=== PATIENT | male | born 1980 | race Caucasian/White ===

== ENCOUNTER 2019-10-04 21:05 | Inpatient (IN) | payer BC ==
[~2019-10-04] VITALS: Ht 185.4 cm; Wt 76.7 kg
--- NOTE | 2019-10-04 21:10 | NUR ---
BIBS FOR C/O RLQ ABD PAIN SINCE 999. DENIED DYSURIA OR HEMATURIA -N/V/D, pt awake, alert, -sob. -cp. vss. +rlq pain, 09/27, pt refuses pain meds at this time. placed on monitor, pending md gusman
[2019-10-04 21:43] LABS: BASOPHILS % (AUTO) 0.6 % (0.0-2.0); EOSINOPHILS % (AUTO) 0.9 % (0.0-6.0); HEMATOCRIT 44 % (39-51); HEMOGLOBIN 15.2 g/dL (13.5-17.5); LYMPHOCYTES # (AUTO) 1.6 /CMM (0.8-4.8); LYMPHOCYTES % (AUTO) 21.4 % (20.0-44.0); MEAN CORPUSCULAR HGB CONC 34 g/dl (31.0-36.0); MEAN CORPUSCULAR VOLUME 91 fL (80-96); MONOCYTES # (AUTO) 0.6 /CMM (0.1-1.30); MONOCYTES % (AUTO) 8.7 % (2.0-12.0); NEUTROPHILS # (AUTO) 5.1 /CMM (1.8-8.9); NEUTROPHILS % (AUTO) 68.4 % (43.0-81.0); PLATELET COUNT (AUTO) 225 /CMM (150-450); RED BLOOD CELL COUNT(AUTO) 4.85 MIL/uL (4.5-6.0); WHITE BLOOD COUNT (AUTO) 7.5 K/uL (4.3-11.0)
[2019-10-04 21:51] LABS: CALCIUM, SERUM 9.8 mg/dL (8.5-10.1); CREATININE 1.1 mg/dL (0.6-1.3); POTASSIUM 3.9 mmol/L (3.5-5.1)
[2019-10-04 21:57] LABS: ALBUMIN 4.3 g/dL (3.4-5.0); BILIRUBIN,DIRECT 0.1 mg/dL (0.0-0.2); BILIRUBIN,TOTAL 0.8 mg/dL (0.2-1.0); TOTAL PROTEIN, SERUM 7.5 g/dL (6.4-8.2)
[2019-10-04 22:13] LABS: APPEARANCE,URINE Slightly Cloudy (CLEAR); BILIRUBIN,URINE Negative (NEGATIVE); BLOOD, URINE Negative Ery/uL (NEGATIVE); COLOR,URINE Yellow (YELLOW); KETONES,URINE Negative (NEGATIVE); LEUKOCYTE ESTERASE ,URINE Negative (NEGATIVE); NITRITE, URINE Negative (NEGATIVE); PH,URINE 8.5 (5.0-8.0); PROTEIN,URINE Negative (NEGATIVE); UGLUCOSE Negative (NEGATIVE)
[2019-10-04] MEDS ORDERED: PIPERACILLIN /TAZOBACTAM 3.375 G in IV D5W 50 ML IV ONE (23:00)
--- NOTE | 2019-10-04 23:00 | NUR ---
CALLED [facility], PAGED TIM JACKMAN NP
--- NOTE | 2019-10-04 23:03 | NUR ---
CALLED NURSING SUP FOR MEDS[facility]G BED
--- NOTE | 2019-10-04 23:06 | NUR ---
ER RD [facility] TALKING TO TIM JACKMAN [facility] REGARDING PT ADMISSION.
[2019-10-04] MEDS ORDERED: PIPERACILLIN /TAZOBACTAM 3.375 G VIAL IV ONE (23:17)
[2019-10-04 23:30] VITALS: BP 116/72
--- NOTE | 2019-10-04 23:42 | NUR ---
report given to queenie stone for danny, pt transported to 3rd floor
[2019-10-05] VITALS (11 sets, daily range): BP systolic 109–136; BP diastolic 62–73
[2019-10-05] MEDS ORDERED: MORPHINE SULFATE INJ 2 MG/ML DISP.SYRIN IV PRN
[2019-10-05] MEDS ORDERED: ONDANSETRON HCL/PF 4 MG/2 ML VIAL IVP PRN
[2019-10-05] MEDS ORDERED: ACETAMINOPHEN 325 MG TABLET PO PRN
[2019-10-05] MEDS ORDERED: MAGNESIUM HYDROXIDE 30 ML UDC PO PRN
[2019-10-05] MEDS ORDERED: Z GUARD REMEDY 2 OZ OINT TP PRN
--- NOTE | 2019-10-05 | NUR ---
[facility] NOTES Received patient from ER via wheelchair accompanied by 1 ER staff. Admitted to [facility] 327-1 due to acute appendicitis under the service of Dr. Horvath. Assisted to bed comfortably. Noted ambulatory with steady gait. A/O x4, independent, on RA, no SOB/respiratory distress noted. Admission routine done. Patient denies any skin issues at this time. With peripheral IV line G#20 with Zosyn 3.375gm ongoing. Admission orders noted and carried out. Kept patient on bed clean, dry and comfortable. Instructed to be on NPO for possible procedures in the morning, patient verbalized understanding. Call light within easy reach. Will continue to monitor accordingly.
[2019-10-05] MEDS: IV NS 0.9% 1,000 ML IV PRN ×2 (00:14→16:02)
[2019-10-05] MEDS ORDERED: PIPERACILLIN /TAZOBACTAM 3.375 G VIAL IV ONE (03:16)
[2019-10-05] MEDS ORDERED: ZOSYN IVPB 3.375 G in IV D5W 50ml IV ONE (05:15)
--- NOTE | 2019-10-05 06:30 | NUR ---
RN CLOSING NOTES Patient asleep, easily awaken. With complaints of occasional abdominal pain, managed with PRN medication as ordered. Kept on NPO as ordered. Awaiting for GI consult/POC at this time. All nursing needs attended, due meds given ordered. Call light within easy reach. Endorsed.
[2019-10-05 06:54] LABS: BASOPHILS # (AUTO) 0.1 /CMM (0.0-0.2); BASOPHILS % (AUTO) 0.9 % (0.0-2.0); EOSINOPHILS % (AUTO) 1.3 % (0.0-6.0); HEMATOCRIT 43 % (39-51); HEMOGLOBIN 14.6 g/dL (13.5-17.5); LYMPHOCYTES # (AUTO) 1.2 /CMM (0.8-4.8); LYMPHOCYTES % (AUTO) 16.1 % (20.0-44.0); MEAN CORPUSCULAR HGB CONC 34 g/dl (31.0-36.0); MEAN CORPUSCULAR VOLUME 92 fL (80-96); MONOCYTES # (AUTO) 0.7 /CMM (0.1-1.30); MONOCYTES % (AUTO) 9.1 % (2.0-12.0); NEUTROPHILS # (AUTO) 5.3 /CMM (1.8-8.9); NEUTROPHILS % (AUTO) 72.6 % (43.0-81.0); PLATELET COUNT (AUTO) 208 /CMM (150-450); RED BLOOD CELL COUNT(AUTO) 4.65 MIL/uL (4.5-6.0); WHITE BLOOD COUNT (AUTO) 7.3 K/uL (4.3-11.0)
[2019-10-05 07:03] LABS: CALCIUM, SERUM 9.2 mg/dL (8.5-10.1); PHOSPHORUS 4.3 mg/dL (2.5-4.9); POTASSIUM 3.9 mmol/L (3.5-5.1)
[2019-10-05 07:17] LABS: THYROID STIMULATING HORMONE 1.646 uIU/mL (0.358-3.74)
--- NOTE | 2019-10-05 08:25 | NUR ---
Patient awake alert oriented X4 . With complaints of occasional abdominal pain, managed with PRN medication as ordered. Kept on NPO as ordered. Awaiting for GI consult/POC at this time. All nursing needs attended, due meds given ordered. Call light within easy reach
[2019-10-05] MEDS ORDERED: PANTOPRAZOLE 40 MG VIAL IV SCH (09:00)
--- NOTE | 2019-10-05 11:00 | NUR ---
MS RN NOTES PATIENT TRANSFERRED TO OR FOR APPENDECTOMY.
[2019-10-05] MEDS: PIPERACILLIN /TAZOBACTAM 3.375 G in IV D5W 50 ML IV SCH ×2 (12:00→18:05)
[2019-10-05] MEDS ORDERED: GLYCOPYRROLATE 0.2 MG/ML VIAL ONE (12:11)
[2019-10-05] MEDS ORDERED: FENTANYL PF 100MCG/2ML AMPUL ONE (12:12)
[2019-10-05] MEDS ORDERED: SUCCINYLCHOLINE CHLORIDE 20 MG/ML VIAL ONE (12:12)
[2019-10-05] MEDS ORDERED: PROPOFOL 20 ML IV ONE (12:12)
[2019-10-05] MEDS ORDERED: MIDAZOLAM HCL 2 MG/2ML VIAL ONE (12:12)
[2019-10-05] MEDS ORDERED: BUPIVACAINE MPF 0.5% W/EPI INJ 30 ML VIAL ONE (12:36)
[2019-10-05] MEDS ORDERED: LIDOCAINE HCL/MPF 1% 30 ML VIAL IJ ONE (12:36)
[2019-10-05] MEDS ORDERED: BACITRACIN ZINC OINT PACKET 1 EA PACKET TP ONE (13:10)
--- NOTE | 2019-10-05 14:00 | NUR ---
MS RN NOTES PATIENT RETURNED FROM OR IN STABLE CONDITION VS WNL. PATIENT ALERT, ORIENTED X4. SURGICAL INCISIONS INTACT PATENT. WILL CONTINUE TO MONITOR.
[2019-10-05] MEDS ORDERED: HYDROMORPHONE 1 MG/1 ML DISP.SYRIN IV PRN (15:00)
[2019-10-05] MEDS ORDERED: HYDROCODONE/APAP 10/325MG 1 EA TABLET PO PRN (15:00)
[2019-10-05] MEDS ORDERED: LEVO500T2 GT (19:22)
--- NOTE | 2019-10-05 19:24 | NUR ---
MS RN NOTES PATIENT SEEN AND EVALUATED BY ENA BUENO. CLEARED FOR DISCHARGE.
[2019-10-05] MEDS ORDERED: ACET325C7 PO (19:29)
--- NOTE | 2019-10-05 19:30 | NUR ---
MS RN NOTES PATIENT WAITING FOR DISCHARGE. ENDORSED TO PM NURSE FOR DISCHARGE PAPERS.
--- NOTE | 2019-10-05 19:55 | NUR ---
MS/EQUINE INTERNSHIP TO HOME ORDER RECEIVED FROM DR. MIDDLETON WITH MD AT BED SIDE INSTRUCTIONS PROVIDED REGARDING NEW MEDICATION AND NEEDED MEDICATION FOR PAIN. EDUCATED ON CARE OF SURGICAL SITE, PATIENT VERBALIZED UNDERSTANDING, BELONGINGS SENT TO PATIENT AND SIGNED, ID BAND REMOVED, VITAL SIGNS CHECK WNL. PATIENT BEING PICKED UP BY [facility] WITH PRIVATE AUTO. DISCHARGE INSTRUCTIONS PROVIDED, PATIENT ABLE TO STATE FEELING GOOD WITH NO PAIN
== END 2019-10-05 20:00 | disposition home or self-care (01) | DRG 343 ==
LOC: ER 21:05 → MED 23:14
PROVIDERS: ADMIT Registered Nurse; ATTEND Internal Medicine
PROC: 0DTJ4ZZ Resection of Appendix, Percutaneous Endoscopic Approach (ICD-10-PCS; principal; 2019-10-05)
DX: K35.80 Unspecified acute appendicitis (principal); E86.0 Dehydration
CPT/HCPCS: 36415; 71045-TC; 80048-TC; 80061-TC; 80076-TC; 81000-TC; 83690-TC; 83735-TC; 84100-TC; 84443-TC; 85025-TC; 85730-TC; 86850-TC; 87081-TC; 88304-TC; C9113; G0378; J0330; J1885; J2250; J2270; J2405; J2543; J2704; J3010; J3490; J7030; J7060